=== PATIENT | female | born 1990 | race African-American/Black ===

== ENCOUNTER 2023-04-02 13:51 | Emergency (ER) | payer OTHER ==
[~2023-04-02] VITALS: Ht 180.3 cm; Wt 75.7 kg
[2023-04-02 14:07] VITALS: BP 125/71; PULSE 78; RESP 20; TEMP 97.8; O2SAT 99
[2023-04-02 15:02] LABS: APPEARANCE,URINE CLEAR (CLEAR); BILIRUBIN,URINE NEGATIVE (NEGATIVE); BLOOD, URINE 1+ (NEGATIVE); COLOR,URINE YELLOW (YELLOW); LEUKOCYTE ESTERASE ,URINE NEGATIVE (NEGATIVE); NITRITE, URINE NEGATIVE (NEGATIVE); PROTEIN,URINE NEGATIVE (NEGATIVE); UGLUCOSE NEGATIVE (NEGATIVE); UROBILINOGEN,URINE 0.2 EU/dL (0.2 - 1)
[2023-04-02 15:21] LABS: RBC,URINE 0-5 /HPF (0-5); WBC,URINE 0-5 /HPF (0-5)
[2023-04-02 15:22] LABS: SQUAMOUS EPITHELIAL CELL,UR 4-10 (MOD) /LPF (0-3 (FEW))
[2023-04-02 15:23] LABS: BACTERIA,URINE 10-30 (MOD) /HPF (None Seen)
[2023-04-02] MEDS ORDERED: NITROFURANTOIN 100 MG CAP PO SCH (16:05)
[2023-04-02] MEDS ORDERED: METR-435 PO (16:09)
[2023-04-02] MEDS ORDERED: FLUC150T PO (16:09)
[2023-04-02] MEDS ORDERED: NITR100C7 PO (16:09)
== END 2023-04-02 16:36 | disposition home or self-care (01) ==
LOC: MED 13:51
DX: N39.0 Urinary tract infection, site not specified (principal); Z79.899 Other long term (current) drug therapy
CPT/HCPCS: 81001; 81025; 87086; 87491; 99283